=== PATIENT | male | born 1965 | race Caucasian/White ===

== ENCOUNTER 2020-11-25 18:24 | Emergency (ER) | payer OTHER ==
[2021-01-01] MEDS ORDERED: PACERONE200 MG PO (08:31)
[2021-01-01] MEDS ORDERED: NICOTINE PATCH1 EAC5 TD (08:32)
[2021-01-01] MEDS ORDERED: COLACE100 MG PO (11:25)
[2021-01-01] MEDS ORDERED: HYDROCODON-ACE1 EAC2 PO (11:25)
== END 2020-11-25 19:35 | disposition left against medical advice (07) ==
LOC: ER1 18:24
DX: R79.9 Abnormal finding of blood chemistry, unspecified (principal); Z53.21 Procedure and treatment not carried out due to patient leaving prior to being seen by health care provider

== ENCOUNTER → 2020-11-27 | Outpatient (CLI) | payer OTHER ==
[~2020-11-27] MED LIST: COLACE100 MG PO; HYDROCODON-ACE1 EAC2 PO; NICOTINE PATCH1 EAC5 TD; PACERONE200 MG PO
== END ==
LOC: RAD 10:56
DX: Z00.00 Encounter for general adult medical examination without abnormal findings (principal); I35.0 Nonrheumatic aortic (valve) stenosis
CPT/HCPCS: 36415; 85610

== ENCOUNTER → 2020-12-18 | Outpatient (CLI) | payer OTHER | LOC: OPSV2 11:54 | DX: Z01.810 Encounter for preprocedural cardiovascular examination (principal); I45.10 Unspecified right bundle-branch block | CPT/HCPCS: 93005 ==

== ENCOUNTER → 2021-01-01 | Day surgery (SDC) | payer OTHER | END | disposition home or self-care (01) | LOC: OR 07:25 | DX: K42.0 Umbilical hernia with obstruction, without gangrene (principal); J44.9 Chronic obstructive pulmonary disease, unspecified; F17.210 Nicotine dependence, cigarettes, uncomplicated; Z20.822 Contact with and (suspected) exposure to COVID-19; Z88.5 Allergy status to narcotic agent; Z91.018 Allergy to other foods; Z79.82 Long term (current) use of aspirin; Z79.899 Other long term (current) drug therapy | CPT/HCPCS: C1781; J0690; J1100; J1170; J2001; J2250; J2270; J2370; J2405; J2704; J2710; J3010; J7120 ==

== ENCOUNTER → 2021-02-20 | Outpatient (CLI) | payer OTHER | LOC: ECHO 02-05 11:00 → HEART 5 02-18 10:30 | DX: R94.31 Abnormal electrocardiogram [ECG] [EKG] (principal); R93.1 Abnormal findings on diagnostic imaging of heart and coronary circulation; I51.7 Cardiomegaly | CPT/HCPCS: 93306 ==

== ENCOUNTER → 2021-06-23 | Outpatient (CLI) | payer OTHER | LOC: HEART 5 13:45 | DX: J44.9 Chronic obstructive pulmonary disease, unspecified (principal); R94.2 Abnormal results of pulmonary function studies | CPT/HCPCS: 94060; 94729 ==

== ENCOUNTER → 2021-07-11 | Outpatient (CLI) | payer OTHER | LOC: KOH-I 10:08 | DX: M25.561 Pain in right knee (principal); M25.562 Pain in left knee; R60.0 Localized edema | CPT/HCPCS: 73560 ==

== ENCOUNTER → 2022-08-14 | Outpatient (CLI) | payer OTHER | LOC: KOH-I 08:42 | DX: M54.6 Pain in thoracic spine (principal); M47.816 Spondylosis without myelopathy or radiculopathy, lumbar region | CPT/HCPCS: 72070; 72100 ==